=== PATIENT | male | born 1995 | race Two or more races ===

== ENCOUNTER 2024-11-05 07:43 | Emergency (ER) | payer SELFPAY ==
[2024-11-05] MEDS: Ondansetron 4 MG Tab.DIS PO ONE (08:03)
[2024-11-05] MEDS: Dexamethasone 4 MG Tab PO ONE (08:43)
[2024-11-05] MEDS: Acetaminophen 500 MG Tab PO ONE (08:44)
[2024-11-05] MEDS: Ketorolac 30 MG/ML SDV IM ONE (08:44)
== END 2024-11-05 09:17 | disposition home or self-care (01) ==
LOC: MW.ED 07:43
DX: J02.9 Acute pharyngitis, unspecified (principal); J45.909 Unspecified asthma, uncomplicated; Z79.899 Other long term (current) drug therapy; Z88.0 Allergy status to penicillin
CPT/HCPCS: 71045; 87428; 87651; 96372; 99284; A9270; J1885; J8540; 99283